=== PATIENT | female | born 1995 | race Caucasian/White ===

== ENCOUNTER 2017-09-09 15:00 | Emergency (ER) | payer OTHER, SELFPAY ==
[2017-09-09 15:00] VITALS: BP 134/83; PULSE 110; RESP 15; TEMP 36.5; BMI 20.6
--- NOTE | 2017-09-09 15:18 | ED.VISSUMM ---
- ER Visit Summary Date of Service: 09/09/17 Chief Complaint: Sent from the [facility] for evaluation for anxiety/panic attack History of Present Illness: The patient is a 22 F who presents because of anxiety reaction. She states there are times that nothing provokes it. She denies history of mitral valve prolapse. She does see a counselor and her counselor recommends medication. She states that a doctor would not be able to see her for a week at the [facility] and reason she was sent to the ER. She denies fever, chills night sweats. She denies any ocular, visual auditory symptoms. She reports intermittent palpitations and shortness of breath. She had intermittent paresthesia. She has no other complaints. Physical Examination: Should not appears slightly anxious. Heart rate is 110. She is afebrile. Head is atraumatic normocephalic. Pupils are equal round reactive. Extraocular muscles are intact. TMs are pearly white with landmarks noted. Nares patent with no drainage. Posterior pharynx without erythema or exudate. Uvula is midline. There is no dysphonia or dysphasia. Trachea is midline. There is no stridor with auscultation of the neck. Heart is regular without murmur, gallop or rub. S1 and S2 are normal. Lungs are clear to auscultation with good movement of air bilaterally. Patient is alert and oriented ?3. Motor is 5 over 5. Sensory is intact. DTRs are symmetric with no clonus or Babinski sign. Cranial 2 through 12 are intact. Cerebellar testing is normal. Test Results: None Emergency Department Course and Treatment: She was treated with anti-anxiolytic Treatment Plan: Prescription for Tranxene and follow-up with at the [facility] and her therapist Disposition: Discharge to home Impression: Anxiety/panic attack This note was generated with [employer] dictation software. It may contain incorrect words, spelling, and punctuation that were not noted in review of the chart prior to signing ED Disposition - Plan for ED Patient: Disposition: Home or Assisted Living Chief Complaint: Anxiety Instructions: ED Panic Attack Prescriptions: Clorazepate [Tranxene] 7.5 mg PO TID #30 tab Referrals: [facility] [GROUP OF PHYSICIANS] - 1 Week
--- NOTE | 2017-09-09 15:23 | ED.DCSUM_ITS ---
- ER Visit Summary Date of Service: 09/09/17 Chief Complaint: Sent from the [facility] for evaluation for anxiety/panic attack History of Present Illness: The patient is a 22 F who presents because of anxiety reaction. She states there are times that nothing provokes it. She denies history of mitral valve prolapse. She does see a counselor and her counselor recommends medication. She states that a doctor would not be able to see her for a week at the [facility] and reason she was sent to the ER. She denies fever, chills night sweats. She denies any ocular, visual auditory symptoms. She reports intermittent palpitations and shortness of breath. She had intermittent paresthesia. She has no other complaints. Physical Examination: Should not appears slightly anxious. Heart rate is 110. She is afebrile. Head is atraumatic normocephalic. Pupils are equal round reactive. Extraocular muscles are intact. TMs are pearly white with landmarks noted. Nares patent with no drainage. Posterior pharynx without erythema or exudate. Uvula is midline. There is no dysphonia or dysphasia. Trachea is midline. There is no stridor with auscultation of the neck. Heart is regular without murmur, gallop or rub. S1 and S2 are normal. Lungs are clear to auscultation with good movement of air bilaterally. Patient is alert and oriented ?3. Motor is 5 over 5. Sensory is intact. DTRs are symmetric with no clonus or Babinski sign. Cranial 2 through 12 are intact. Cerebellar testing is normal. Test Results: None Emergency Department Course and Treatment: She was treated with anti-anxiolytic Treatment Plan: Prescription for Tranxene and follow-up with at the [facility] and her therapist Disposition: Discharge to home Impression: Anxiety/panic attack This note was generated with [employer] dictation software. It may contain incorrect words, spelling, and punctuation that were not noted in review of the chart prior to signing ED Disposition - Plan for ED Patient: Disposition: Home or Assisted Living Chief Complaint: Anxiety Instructions: ED Panic Attack Prescriptions: Clorazepate [Tranxene] 7.5 mg PO TID #30 tab Referrals: [facility] [GROUP OF PHYSICIANS] - 1 Week
[2017-09-09] MEDS: LORazepam 0.5 MG Tablet PO (15:30)
== END 2017-09-09 15:36 | disposition home or self-care (01) ==
PROVIDERS: Emergency Provider Emergency Medicine
DX: F41.9 Anxiety disorder, unspecified (principal); F41.0 Panic disorder [episodic paroxysmal anxiety]; I34.1 Nonrheumatic mitral (valve) prolapse; E03.9 Hypothyroidism, unspecified; Z79.899 Other long term (current) drug therapy
CPT/HCPCS: 99282